=== PATIENT | female | born 2000 | race Caucasian/White ===

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

== ENCOUNTER 2018-08-20 17:20 | Emergency (ER) | payer OTHER ==
[~2018-08-20] VITALS: Ht 170.1 cm; Wt 63.5 kg
== END 2018-08-20 19:34 | disposition home or self-care (01) ==
LOC: ED 17:20
DX: M25.422 Effusion, left elbow (principal); Z79.899 Other long term (current) drug therapy